=== PATIENT | female | born 1950 | race Caucasian/White ===

== ENCOUNTER 2016-11-05 08:00 | Inpatient (IN) | payer MEDICARE, OTHER ==
[~2016-11-05] VITALS: Ht 162.6 cm; Wt 82.6 kg
--- NOTE | ~2016-11-05 | OR ---
PATIENT'S NAME: SHEEBA HODGE [facility] AGE: 66 Y [address] ROOM: [place] [address] LOCATION: [facility] ADMIT DATE: 11/18/2016 OR/Procedure Report DISCHARGE DATE: FAMILY PHYSICIAN: Stephanie Guzman MD ATTENDING PHYSICIAN: HAIR LEMUS SURGEON: Hair Lemus MD PORTABLE POWER TOOL REPAIRER: 1. BENJI Tyler. 2. Gonzalez Child CST/PATTERNMAKER METAL. DATE OF PROCEDURE: 11/18/2016 PREOPERATIVE DIAGNOSIS: Primary osteoarthritis, right hip. POSTOPERATIVE DIAGNOSIS: Primary osteoarthritis, right hip. OPERATION: Right total hip arthroplasty. ANESTHESIA: Spinal anesthesia plus subcutaneous and periarticular local anesthesia (ropivacaine with epinephrine and Toradol). ESTIMATED BLOOD LOSS: Approximately 200 mL. DRAIN: None. SPECIMEN: None. COMPLICATIONS: None. IMPLANTS: 1. Nancy Trident titanium size 52 mm hemispherical uncemented acetabular shell with 1 dome hole cover and no screws. 2. [place] X3 neutral acetabular polyethylene liner with 32 mm inner diameter. 3. Nancy Accolade II size 4 standard-offset uncemented femoral component. 4. A 32 mm diameter metallic femoral head with -4 mm neck length. INDICATION FOR SURGERY: Sheeba Hodge is a 66-year-old female who presents with advanced primary osteoarthritis of hip, right, and associated severely compromised activities of daily living. The patient has decided to proceed with hip replacement after having been thoroughly counseled regarding the associated risks, benefits, and limitations. We have specifically reviewed the risks and implications of infection, deep venous thrombosis, pulmonary embolism, mortality, neurovascular complications, blood transfusion (and associated potential for disease transmission or transfusion reaction), stiffness, instability, leg length discrepancy, mechanical deterioration of the components (due to wear and to loosening), and the potential need for PATIENT'S NAME: ZOË HODGEH Emily [facility] AGE: 66 Y [address] ROOM: [place] [address] LOCATION: [facility] ADMIT DATE: 11/18/2016 OR/Procedure Report DISCHARGE DATE: FAMILY PHYSICIAN: Stephanie Guzman MD ATTENDING PHYSICIAN: HAIR LEMUS revision. DESCRIPTION OF PROCEDURE: The patient was positioned in a lateral decubitus position with the right side up after administration of anesthesia and prophylactic antibiotics. An axillary roll was placed and the non-operative leg was well padded. The pelvis was locked perpendicularly to the floor on a pegboard. The right hip and entire operative extremity were prepped and draped with vigilant sterile technique. The patient's name as well as the intended operative side and procedure were confirmed with a verbal time-out involving myself, the circulating nurse, the scrub nurse, and the anesthesiologist. The right hip was approached through a standard posterolateral incision. The fascia musa and the gluteus kaylen fascia were sharply divided in line with the overlying skin incision. The sciatic nerve was identified and was vigilantly protected throughout the entire case. The short external rotators and posterior capsule were divided from their respective femoral insertions and tagged with four #1 Ethibond sutures for later repair. The hip was posteriorly dislocated with combined flexion, adduction, and internal rotation. The femoral neck osteotomy was performed with an oscillating saw. Inspection of the femoral head demonstrated partial- thickness articular cartilage loss throughout the superomedial quadrant. There was no femoral head collapse. There was a very small osteophyte at the periphery of the femoral head. Circumferential acetabular exposure was obtained. Inspection of the acetabulum demonstrated full-thickness loss of articular cartilage at the anterosuperior quadrant. There was no dysplasia. There was a small medial acetabular osteophyte. There was a moderate effusion consisting of benign-appearing translucent synovial fluid. Remnants of the acetabular labrum were sharply thoroughly excised. The acetabulum was sequentially progressively reamed up to 51 mm with hemispherical power reamers. The final acetabular shell was impacted into position in 20 degrees of anteversion and 45 degrees of inclination. An excellent press-fit was obtained. No supplemental dome screw fixation was necessary. A neutral trial liner was inserted. Attention was next focused upon femoral preparation. The femoral canal initiator was utilized. No reaming was performed (except for with a canal finder). The femoral canal was subsequently sequentially progressively broached up to a size 4. The size 4 broach obtained excellent axial and rotational stability. Trial reductions with the above specified construct yielded acceptable stability and acceptable reproduction of leg length and offset. All trial components were removed. PATIENT'S NAME: SHEEBA HODGE [facility] AGE: 66 Y [address] ROOM: [id number] [place], [place] [address] LOCATION: [facility] ADMIT DATE: 11/18/2016 OR/Procedure Report DISCHARGE DATE: FAMILY PHYSICIAN: Stephanie Guzman MD ATTENDING PHYSICIAN: HAIR LEMUS The final acetabular liner was inserted with excellent circumferential visualization of its locking mechanism to assure adequate deployment. The final femoral component was impacted into position. The femoral component achieved excellent axial and rotational stability. The trunnion of the femoral component was vigilantly protected prior to placement of the femoral head. The trunnion of the femoral component was thoroughly cleaned and dried prior to placement of the femoral head. The incision was thoroughly irrigated with bacteriostatic pulsatile saline lavage multiple times throughout the case. The entire joint space was thoroughly inspected and thoroughly irrigated to assure that there was no residual debris of any sort. A final reduction was then performed. After final reduction, the hip could be firmly externally rotated in full extension and zero degrees of abduction without anterior subluxation. In neutral rotation and zero degrees of abduction, the hip could be firmly flexed to 120 degrees without instability. At 90 degrees of flexion and zero degrees abduction, the hip could be internally rotated to 65 degrees before there was any hint of posterior subluxation. The posterior capsule and short external rotators were repaired through two drill holes in the posterior aspect of the greater trochanter. The fascia musa and gluteus kaylen fascia were closed with multiple simple and [id number] interrupted # 1 Ethibond and #1 Vicryl sutures. Subcutaneous tissues were thoroughly re-irrigated with bacteriostatic pulsatile saline lavage. Subcutaneous tissues were re-approximated with simple buried interrupted #0 Vicryl sutures. The skin was closed with superficial buried interrupted 2-0 Vicryl sutures followed by a running subcuticular 3-0 Monocryl suture, followed by Octylseal, followed by Steri- Strips with benzoin, followed by an occlusive Mepilex dressing. There were no intra-operative complications. It should be noted that the physician's processing assistant played an active, integral role throughout this entire operation. By providing expert retraction, they greatly facilitated and expedited safe and effective exposure of the proximal femur and acetabulum for preparation and implantation of the components. They were also actively involved in the patient's positioning, prepping and draping, as well as wound closure. PATIENT'S NAME: SHEEBA HODGE [facility] AGE: 66 Y [address] ROOM: [address] [address] LOCATION: [facility] ADMIT DATE: 11/18/2016 OR/Procedure Report DISCHARGE DATE: FAMILY PHYSICIAN: Stephanie Guzman MD ATTENDING PHYSICIAN: HAIR LEMUS MD JMW/raull /[id number] d: 11/18/16 1335 t: 11/22/16 0752, OPERATIVE SUMMARY
--- NOTE | ~2016-11-05 | DS ---
PATIENT'S NAME: SEGUN RUBIO [facility] AGE: 66 Y [address] ROOM: [address] [address] LOCATION: [facility] ADMIT DATE: 11/18/2016 Discharge Summary DISCHARGE DATE: 11/20/2016 FAMILY PHYSICIAN: Stephanie Guzman MD ATTENDING PHYSICIAN: Betito Buck PRIMARY DIAGNOSIS: Osteoarthritis, right hip. SECONDARY DIAGNOSIS: Obesity. PROCEDURE PERFORMED: Right total hip arthroplasty. HISTORY: The patient is a 66-year-old, who presents with advanced right hip degenerative joint disease and associated severely compromised activities of daily living. The patient has decided to proceed with total right hip arthroplasty after having been thoroughly counseled regarding the risks, benefits, limitations and alternatives. Please refer to the outpatient clinic notes and admission history and physical for this patient. HOSPITAL COURSE: The patient underwent a total right hip arthroplasty on 11/18/2016 without complications. Spinal anesthesia plus subcutaneous and periarticular local anesthesia was utilized. The patient received 24 hours of perioperative prophylactic antibiotics and remained hemodynamically stable, neurovascularly intact throughout the entire hospital course. The postoperative prophylactic deep venous thrombosis prophylaxis consisted of Xarelto, early mobilization and pneumatic compression devices. Daily physical therapy for gait training, transfer training, and reinforcement of hip dislocation precautions were received. The patient progressed well in physical therapy. On the date of discharge, 11/20/2016, the incision at the hip was healing well and showed no signs of infection. DISPOSITION: Home. DISCHARGE ACTIVITY: The patient is to bear weight as tolerated with strict hip dislocation precautions as instructed. There are to be no dressing changes. Dr. Buck is to be notified immediately if there is any increased pain, fevers, chills, erythema, or drainage. DISCHARGE MEDICATIONS: 1. Xarelto 10 mg 1 tablet p.o. daily for 12 days for postoperative DVT prophylaxis. 2. [place] 5/325 mg 1 to 2 tablets p.o. every 4 hours p.r.n. for pain. 3. Gabapentin 300 mg 1 tablet p.o. every night x7 days for pain. 4. She was then instructed to continue all her other pre-admission medications as instructed by her Internal Medicine doctor. PATIENT'S NAME: SEGUN RUBIO [facility] AGE: 66 Y [address] ROOM: [address] [address] LOCATION: [facility] ADMIT DATE: 11/18/2016 Discharge Summary DISCHARGE DATE: 11/20/2016 FAMILY PHYSICIAN: Stephanie Guzman MD ATTENDING PHYSICIAN: Betito Buck FOLLOWUP: Followup appointment is to be with Dr. Buck's office on 11/25/2016 for her initial postoperative evaluation. CHINA PATTEN PA-C FOR MD MARTA IBARRAW/raull /[id number] d: 11/30/16 1933 t: 12/02/16 1056, DISCHARGE SUMMARY
[2016-11-05] MEDS ORDERED: ULTRAM50 MG PO (08:49)
[2016-11-05] MEDS ORDERED: TYLENOL EXTRA500 MG PO (08:50)
--- NOTE | 2016-11-18 07:06 | NUR ---
2 IV ATTEMPTS MADE PER ALBINA Hector RN
--- NOTE | 2016-11-18 14:32 | NUR ---
Significant Event: Pt up from PACU at 1215. Hypotensive upon arrival. Notified Jeff Grace APRN and he ordered a 250mL/fluid bolus. Pressures came up to low 100s. Asymptomatic. Dressing to right hip C/D/I. CSM WNL. IVs intact. Continuing IVF. NSAID allergies. Up to recliner with 1PA, walker and gait belt. She did dribble urine, has a Depends on. Voids without difficulty. Pain well controlled with Dilaudid and Tylenol. Strict hip dislocation precautions followed. Pillow between legs. Pleasant and cooperative with all cares. Family at bedside. Follow up:
--- NOTE | 2016-11-19 04:51 | NUR ---
Pt up with one assist. 2mg dilaudid last at 0422. Dressing C/D/I. CSM's intact. Voids w/o difficulty.
--- NOTE | 2016-11-19 09:25 | NUR ---
Introduced self/role to patient. She lives in [place] with her , they have a small hotel. Her sisters are coming down tomorrow to stay with her at home. She has all the DME she thinks she will need besides a grabber which her can supervisor opening and picking. Added my name to her marker board. She plans to discharge tomorrow.
[2016-11-19 11:23] LABS: HEMOGLOBIN 12.3 g/dL (10.0-15.0)
--- NOTE | 2016-11-19 13:56 | NUR ---
Significant Event:AOx3. Hypotensive and nauseated this morning. 500ml NS bolus given at 1048. B/P much better. 100's/60's. Dressing C/D/I. CSM WNL. Up with 1 assist with walker to bathroom. Follow up:
--- NOTE | 2016-11-20 04:54 | NUR ---
Pt walked in the halls once. Up one assist. Dilaudid last at 033. Pt had 2.5mg valium at 2119. Systolic bps have been 121-130. CSM's intact. Dressing C/D/I. Possibly going home today. No N/V this shift.
[2016-11-20] MEDS ORDERED: COLACE100 MG PO (15:49)
[2016-11-20] MEDS ORDERED: NEURONTIN300 MG PO (15:50)
[2016-11-20] MEDS ORDERED: XARELTO10 MG PO (15:51)
[2016-11-20] MEDS ORDERED: MIRALAX17 GM PO (15:51)
[2016-11-20] MEDS ORDERED: NORCO 5-325 TA1 EACH PO (15:53)
--- NOTE | 2016-11-20 19:08 | NUR ---
Pt discharging to home at 1740. Pt is alert, oriented. Has good pain relief with the [place] started today. After IV bolus today, has denied dizziness, nausea, and BP has been WNL. Pt has mepilex intact Rt hip. She understands hip dislocation precautions. She ambulates with walker and standby assist. Pt has good intake and output. She has CSM that are WNL. She states she feels much better this afternoon. She has all belongings. Verbalizes understanding of all discharge instructions, home meds, activity, precautions, She was discharged to go home with spouse in stable condition.
== END 2016-11-20 17:39 | disposition disaster alternative care site (69) | DRG 470 ==
LOC: G3N 11-18 06:12
PROVIDERS: Nurse Practitioner Family; ADMIT Orthopaedic Surgery
PROC: 0SR902A Replacement of Right Hip Joint with Metal on Polyethylene Synthetic Substitute, Uncemented, Open Approach (ICD-10-PCS; principal; 2016-11-18)
DX: M16.11 Unilateral primary osteoarthritis, right hip (principal); I95.89 Other hypotension; E66.9 Obesity, unspecified; Z68.31 Body mass index [BMI] 31.0-31.9, adult
CPT/HCPCS: C1776; J0690; J1885; J2001; J2175; J2405; J2795; J7030; J7120

== ENCOUNTER → 2016-11-07 | Outpatient (CLI) | payer MEDICARE, OTHER ==
[~2016-11-07] MED LIST: COLACE100 MG PO; MIRALAX17 GM PO; NEURONTIN300 MG PO; NORCO 5-325 TA1 EACH PO; TYLENOL EXTRA500 MG PO; ULTRAM50 MG PO; XARELTO10 MG PO
== END | disposition disaster alternative care site (69) ==
LOC: GNJRC 10:36
DX: Z01.812 Encounter for preprocedural laboratory examination (principal); M16.11 Unilateral primary osteoarthritis, right hip